=== PATIENT | male | born 1955 | race American Indian/Alaskan Native ===

== ENCOUNTER 2017-12-23 06:21 | Day surgery (SDC) | payer OTHER ==
[2017-12-23] MEDS ORDERED: Bupivacaine HCl 0.5% PF (30 ml) Inj ONE (07:20)
[2017-12-23] MEDS ORDERED: ceFAZolin IV 1 gm in Dextrose 1 GM/50 ML BAG IVPB ONE (07:20)
[2017-12-23] MEDS ORDERED: Midazolam 2 MG/2 ML VIAL ONE (07:37)
[2017-12-23] MEDS ORDERED: Propofol 10 mg/ml Inj (20 ML) ONE (07:37)
[2017-12-23] MEDS ORDERED: Bacitracin 50,000 UNIT in Sodium Chloride 0.9% Irrig 1,000 ML IR SCH (07:40)
[2017-12-23] MEDS ORDERED: Lidocaine Hydrochloride 20 ML INJ ONE (07:46)
[2017-12-23] MEDS ORDERED: HYDROmorphone 0.5 mg/0.5 ml ISec IVP PRN (08:14)
[2017-12-23] MEDS ORDERED: Oxycodone/Acetaminophen 5/325 mg Tab PO PRN ×2 (08:36)
--- NOTE | 2017-12-23 09:58 | PCM.SURG1 ---
Surgeon's Initial Post Op Note - Surgeon's Notes Surgeon: Curtis Banegas MD [place] Tester: Mark Busch PA-C Type of Anesthesia: IV Sedation Anesthesia Administered By: Ajay Hodge CRNA/Philippe BLUM Pre-Operative Diagnosis: Right hand palm and fourth finger soft tissue mass Operative Findings: see complete operative report Post-Operative Diagnosis: as above Operation Performed: Right hand palm and fourth finger soft tissue mass excision Specimen/Specimens Removed: Right hand palm and fourth finger soft tissue Estimated Blood Loss: EBL {In ML}: 0 Blood Products Given: N/A Drains Used: No Drains Post-Op Condition: Good Date of Surgery/Procedure: 12/23/17 Time of Surgery/Procedure: 07:53
[2017-12-23 10:01] VITALS: RESP 18
[2017-12-23 10:05] VITALS: BP 113/87; PULSE 61; TEMP 97.6; O2SAT 100
--- NOTE | 2017-12-24 06:09 | OP ---
PROCEDURE DATE: 12/23/2017 PREOPERATIVE DIAGNOSES: 1. Right fourth digit soft tissue mass. 2. Right third webspace palmar soft tissue mass. POSTOPERATIVE DIAGNOSES: 1. Right fourth digit soft tissue mass. 2. Right third webspace palmar soft tissue mass. PROCEDURES: 1. Excisional biopsy of right fourth digit soft tissue mass measuring 2 x 2 cm. 2. Excisional biopsy of right third webspace palmar soft tissue mass measuring 2 x 2 cm. SURGEON: Curtis Banegas MD ANESTHESIA: Local. COMPLICATIONS: None. ESTIMATED BLOOD LOSS: None. DISPOSITION: Stable to recovery room. SPECIMENS: Right fourth digit soft tissue mass and right third webspace soft tissue mass. DESCRIPTION OF PROCEDURE: The patient was brought to the operating room and placed supine on the operating room table. After adequate regional anesthesia was given and prophylactic antibiotics, a well-padded non-sterile tourniquet was placed in the patient's right upper extremity. The entire extremity was then prepped and draped in standard surgical fashion and a time-out was performed. The arm was elevated and exsanguinated and the tourniquet was inflated to 250 mmHg. Two incisions were made at the distal 2 cm. mass over the was longitudinal measuring 3 cm in length. Dissection of skin down to the of the finger. . The wound was then explored. No signs of pathologic masses. A cautery was used in its entirety . The mass was superficial to the fascial layer. Cautery was used to hemostasis. The wound was irrigated and then closed with 4-0 nylon interrupted sutures. Sterile dressing was applied consisting of Xeroform, fluffs, 4 x 4s, and . The patient tolerated the procedure well and was returned to recovery room in excellent condition. Curtis Banegas MD
== END 2017-12-23 09:49 | disposition home or self-care (01) ==
LOC: C.SDS 06:21
PROVIDERS: ATTEND Orthopaedic Surgery
DX: B07.8 Other viral warts (principal); M79.9 Soft tissue disorder, unspecified
CPT/HCPCS: 26111; 88305; J0690; J2250; J2704; J3010